=== PATIENT | female | born 1990 | race Caucasian/White ===

== ENCOUNTER → 2016-12-05 | Outpatient (CLI) | payer OTHER ==
[~2016-12-05] MED LIST: ALBUTEROL0.09 MG/A2 INH; ASMANEX220 MCG INH; AUGMENTIN 875 M1 TAB PO; BACTRIM DS 8001 TA1 PO; CIPRODEX 0.3%-7.5 ML OT; CIPROFLOXACIN500 MG PO; CLARITIN10 MG PO; CYMBALTA60 MG PO; DAYPRO600 M1 PO; FLEXERIL10 MG PO; FLUTICASON0.05 MG/A1 NAS; HYDROCODONE BIT1 T11 PO; IMMUNE GLOBULIN IV; LEVOFLOXACIN500 MG PO; LORADAMED10 MG PO; Lopressor25 MG PO; MACROBID100 M1 PO; MEDROL DOSEPAK4 MG PO; METFORMIN500 MG PO; MOTRIN800 MG PO; NEURONTIN300 MG PO; NKHM; NO DAILY MEDS; OMEPRAZOLE20 M2 PO; OXYCODONE-ACETAMINOP; PARAFON FORTE500 MG PO; PHENERGAN25 M1 PO; ROBAXIN750 MG PO; ULTRAM50 MG PO; ZITHROMAX250 MG PO; ZOFRAN ODT4 MG SL; [UNRECOGNIZED DRUG - OTHER]; [UNRECOGNIZED DRUG - OTHER]
== END | disposition home or self-care (01) ==
LOC: RAD 08:00
DX: K21.9 Gastro-esophageal reflux disease without esophagitis (principal)

== ENCOUNTER → 2017-01-17 | Outpatient (CLI) | payer OTHER ==
[2017-01-17 14:23] LABS: BASO % 0.5 % (0.0-1.0); EOS # 0.3 10*3/uL (0.0-0.4); EOS % 4.6 % (1.0-4.0); HEMATOCRIT 40.1 % (37.0-47.0); HEMOGLOBIN 13.7 g/dl (12.0-16.0); LYMPH # 2.5 10*3/uL (1.3-4.4); LYMPH % 38.3 % (27.0-41.0); MEAN CELL VOLUME 91.1 fl (81.0-99.0); MEAN CORPUSCULAR HGB 31.1 pg (27.0-31.0); MEAN CORPUSCULAR HGB CONC 34.2 g/dl (33.0-37.0); MEAN PLATELET VOLUME 9.2 fl (9.6-12.3); MONO # 0.4 10*3/uL (0.1-1.0); MONO % 6.1 % (3.0-9.0); NEUT # 3.3 10*3/uL (2.3-7.9); NEUT % 50.2 % (47.0-73.0); PLATELET COUNT AUTOMATED 303 10*3/uL (130-400); WHITE BLOOD COUNT 6.5 10*3/uL (4.8-10.8)
[2017-01-17 14:38] LABS: ALBUMIN 3.9 gm/dl (3.1-4.5); ALKALINE PHOSPHATASE 64 U/L (45-117); BILIRUBIN, TOTAL 0.2 mg/dl (0.2-1.0); BUN 9 mg/dl (7-24); CARBON DIOXIDE 26 mmol/L (21-32); CHLORIDE 107 mmol/L (98-107); EST GLOM FILT AFRICAN AMERICAN > 60 ml/min; GLUCOSE 78 mg/dL (65-99); POTASSIUM 3.8 mmol/L (3.5-5.1); SGOT/AST 27 IU/L (3-35); SGPT/ALT 18 U/L (12-78); SODIUM 138 mmol/L (136-145); TOTAL PROTEIN 7.7 gm/dL (6.4-8.2)
== END | disposition home or self-care (01) ==
LOC: LAB 13:11
PROVIDERS: Family Medicine
DX: K58.0 Irritable bowel syndrome with diarrhea (principal); R10.84 Generalized abdominal pain

== ENCOUNTER → 2017-01-18 | Outpatient (CLI) | payer OTHER | END | disposition home or self-care (01) | LOC: LAB 09:57 | DX: D83.9 Common variable immunodeficiency, unspecified (principal) ==

== ENCOUNTER 2017-01-31 11:59 | Emergency (ER) | payer OTHER ==
[~2017-01-31] VITALS: Wt 60.3 kg
[2017-01-31] MEDS ORDERED: TYLENOL325 M1 PO (12:18)
[2017-01-31] MEDS ORDERED: IVIG (12:18)
[2017-01-31] MEDS ORDERED: ZOFRAN4 MG PO (12:19)
[2017-01-31] MEDS ORDERED: METOPROLOL25 MG PO (12:19)
[2017-01-31] MEDS ORDERED: FLUONAZOLE100 M1 PO (12:20)
[2017-01-31] MEDS ORDERED: NEURONTIN300 MG PO (12:21)
[2017-01-31] MEDS ORDERED: PRENATAL1 TA3 PO (12:21)
[2017-01-31] MEDS ORDERED: FLONASE ALLERG9.9 ML NAS (12:22)
[2017-01-31] MEDS ORDERED: SINGULAIR10 M1 PO (12:22)
[2017-01-31] MEDS ORDERED: CLARITIN10 MG PO (12:23)
[2017-01-31] MEDS ORDERED: EPIPEN 2-PAK1 MG/ML IJ (12:23)
[2017-01-31] MEDS ORDERED: KEPPRA500 MG PO (12:24)
[2017-01-31] MEDS ORDERED: LINZESS72 MCG PO (12:24)
[2017-01-31] MEDS ORDERED: ASMANEX220 MCG INH (12:25)
[2017-01-31] MEDS ORDERED: METFORMIN500 MG PO (12:25)
[2017-01-31] MEDS ORDERED: CYCLOBENZAPRINE10 MG PO (12:26)
[2017-01-31 12:39] LABS: BASO % 0.6 % (0.0-1.0); EOS # 0.4 10*3/uL (0.0-0.4); HEMATOCRIT 37.3 % (37.0-47.0); HEMOGLOBIN 12.6 g/dl (12.0-16.0); LYMPH % 36.9 % (27.0-41.0); MEAN CORPUSCULAR HGB 30.7 pg (27.0-31.0); MEAN CORPUSCULAR HGB CONC 33.8 g/dl (33.0-37.0); MEAN PLATELET VOLUME 9.2 fl (9.6-12.3); MONO # 0.3 10*3/uL (0.1-1.0); MONO % 5.6 % (3.0-9.0); NEUT # 2.6 10*3/uL (2.3-7.9); NEUT % 49.7 % (47.0-73.0); PLATELET COUNT AUTOMATED 238 10*3/uL (130-400); RED CELL DISTRI WIDTH 12.4 % (0-14.5); WHITE BLOOD COUNT 5.3 10*3/uL (4.8-10.8)
[2017-01-31 12:47] LABS: PROTHROMBIN TIME 10.9 SECONDS (9.0-12.4)
[2017-01-31 12:57] LABS: ALBUMIN 3.6 gm/dl (3.1-4.5); ALKALINE PHOSPHATASE 49 U/L (45-117); BILIRUBIN, TOTAL 0.3 mg/dl (0.2-1.0); BUN 7 mg/dl (7-24); C-REACTIVE PROTEIN < 0.29 MG/DL (0-0.3); CARBON DIOXIDE 25 mmol/L (21-32); CHLORIDE 110 mmol/L (98-107); CKMB < 0.5 ng/ml (0.5-3.6); CPK 53 U/L (26-192); EST GLOM FILT AFRICAN AMERICAN > 60 ml/min; GLUCOSE 78 mg/dL (65-99); MAGNESIUM 2.2 mg/dL (1.5-2.1); PHOSPHOROUS 3.3 mg/dL (2.5-4.9); SGOT/AST 21 IU/L (3-35); SGPT/ALT 19 U/L (12-78); SODIUM 141 mmol/L (136-145); TOTAL PROTEIN 7.4 gm/dL (6.4-8.2); TROPONIN I < 0.015 ng/ml (<0.045)
== END 2017-01-31 15:58 | disposition home or self-care (01) ==
LOC: ED 11:59
PROVIDERS: Emergency Medicine
DX: G40.909 Epilepsy, unspecified, not intractable, without status epilepticus (principal); T42.6X5A Adverse effect of other antiepileptic and sedative-hypnotic drugs, initial encounter; K58.9 Irritable bowel syndrome, unspecified; Z79.899 Other long term (current) drug therapy; Z88.6 Allergy status to analgesic agent; Z88.8 Allergy status to other drugs, medicaments and biological substances; Y92.9 Unspecified place or not applicable

== ENCOUNTER → 2017-02-08 | Outpatient (CLI) | payer OTHER ==
[~2017-02-08] MED LIST changes: +CYCLOBENZAPRINE10 MG PO; +EPIPEN 2-PAK1 MG/ML IJ; +FLONASE ALLERG9.9 ML NAS; +FLUONAZOLE100 M1 PO; +IVIG; +KEPPRA500 MG PO; +LINZESS72 MCG PO; +METOPROLOL25 MG PO; +PRENATAL1 TA3 PO; +SINGULAIR10 M1 PO; +TYLENOL325 M1 PO; +ZOFRAN4 MG PO
== END | disposition home or self-care (01) ==
LOC: MRI 03:26 → CP 10:00
DX: G40.009 Localization-related (focal) (partial) idiopathic epilepsy and epileptic syndromes with seizures of localized onset, not intractable, without status epilepticus (principal)

== ENCOUNTER → 2017-03-02 | Outpatient (CLI) | payer OTHER ==
[2017-03-02 13:37] LABS: PROTHROMBIN TIME 10.3 SECONDS (9.0-12.4)
[2017-03-04 14:08] LABS: ANTI-THROMBIN III ACTIVITY 122 % (75-135); LUPUS DRVVT 41.1 sec (0.0-47.0); PROTEIN S, FREE 85 % (57-157); PROTEIN S, TOTAL 120 % (60-150); PTT-LA 33.6 sec (0.0-43.6)
[2017-03-04 15:05] LABS: LUPUS REFLEX INTERPRETATION Comment: (.)
== END | disposition home or self-care (01) ==
LOC: LAB 12:43
PROVIDERS: Family Medicine
DX: O03.9 Complete or unspecified spontaneous abortion without complication (principal); D83.9 Common variable immunodeficiency, unspecified; Z3A.00 Weeks of gestation of pregnancy not specified

== ENCOUNTER 2017-04-16 13:50 | Emergency (ER) | payer OTHER ==
[~2017-04-16] VITALS: Wt 61.2 kg
[2017-04-16 14:25] LABS: BASO % 0.5 % (0.0-1.0); EOS # 0.4 10*3/uL (0.0-0.4); EOS % 5.9 % (1.0-4.0); HEMATOCRIT 38.5 % (37.0-47.0); HEMOGLOBIN 12.9 g/dl (12.0-16.0); LYMPH # 2.5 10*3/uL (1.3-4.4); LYMPH % 43.1 % (27.0-41.0); MEAN CELL VOLUME 94.8 fl (81.0-99.0); MEAN CORPUSCULAR HGB 31.8 pg (27.0-31.0); MEAN CORPUSCULAR HGB CONC 33.5 g/dl (33.0-37.0); MEAN PLATELET VOLUME 8.8 fl (9.6-12.3); MONO # 0.4 10*3/uL (0.1-1.0); MONO % 6.1 % (3.0-9.0); NEUT # 2.6 10*3/uL (2.3-7.9); NEUT % 44.1 % (47.0-73.0); PLATELET COUNT AUTOMATED 281 10*3/uL (130-400); RED BLOOD COUNT 4.06 10*6/uL (4.10-5.10); RED CELL DISTRI WIDTH 12.2 % (0-14.5); WHITE BLOOD COUNT 5.9 10*3/uL (4.8-10.8)
[2017-04-16 14:41] LABS: ALBUMIN 3.8 gm/dl (3.1-4.5); ALKALINE PHOSPHATASE 68 U/L (45-117); BILIRUBIN, TOTAL 0.2 mg/dl (0.2-1.0); BUN 7 mg/dl (7-24); C-REACTIVE PROTEIN < 0.29 MG/DL (0-0.3); CARBON DIOXIDE 25 mmol/L (21-32); CHLORIDE 105 mmol/L (98-107); EST GLOM FILT AFRICAN AMERICAN > 60 ml/min; GLUCOSE 76 mg/dL (65-99); POTASSIUM 3.4 mmol/L (3.5-5.1); SGOT/AST 21 IU/L (3-35); SGPT/ALT 18 U/L (12-78); SODIUM 138 mmol/L (136-145); TOTAL PROTEIN 8.5 gm/dL (6.4-8.2)
[2017-04-16 14:43] LABS: BILIRUBIN NEGATIVE (NEGATIVE); BLOOD NEGATIVE (NEGATIVE); CLARITY CLEAR (CLEAR); COLOR YELLOW (YELLOW); GLUCOSE NEGATIVE (NEGATIVE); KETONE NEGATIVE (NEGATIVE); LEUKO ESTERASE NEGATIVE (NEGATIVE); NITRITE NEGATIVE (NEGATIVE); PH 5.5 (5.0-9.0); PROTEIN NEGATIVE (NEGATIVE); SPECIFIC GRAVITY 1.015 (1.005-1.030); UROBILINOGEN 0.2 E.U./dl (0.2-1.0)
[2017-04-16 14:50] LABS: BACTERIA TRACE; RBC 0-2 rbc/hpf (0-2); URINE REFLEX COMMENT NO (NO); WBC 0-2 wbc/hpf (0-5)
[2017-04-16] MEDS ORDERED: ZANTAC 150150 MG PO (15:14)
[2017-04-16] MEDS ORDERED: HYDROCODONE BIT1 T11 PO (15:14)
== END 2017-04-16 15:24 | disposition home or self-care (01) ==
LOC: ED 13:50
PROVIDERS: Physician Assistant
DX: R10.13 Epigastric pain (principal); R11.0 Nausea; K21.9 Gastro-esophageal reflux disease without esophagitis; F17.200 Nicotine dependence, unspecified, uncomplicated; Z88.6 Allergy status to analgesic agent; Z88.8 Allergy status to other drugs, medicaments and biological substances; Z79.899 Other long term (current) drug therapy

== ENCOUNTER 2017-04-30 17:49 | Emergency (ER) | payer OTHER ==
[~2017-04-30 17:49] MED LIST changes: +ZANTAC 150150 MG PO
[2017-04-30 18:22] LABS: BASO % 0.2 % (0.0-1.0); EOS # 0.3 10*3/uL (0.0-0.4); HEMATOCRIT 34.5 % (37.0-47.0); LYMPH # 1.7 10*3/uL (1.3-4.4); LYMPH % 20.6 % (27.0-41.0); MEAN CELL VOLUME 92.5 fl (81.0-99.0); MEAN CORPUSCULAR HGB 32.2 pg (27.0-31.0); MEAN CORPUSCULAR HGB CONC 34.8 g/dl (33.0-37.0); MEAN PLATELET VOLUME 8.6 fl (9.6-12.3); MONO # 0.5 10*3/uL (0.1-1.0); NEUT # 5.8 10*3/uL (2.3-7.9); NEUT % 69.8 % (47.0-73.0); PLATELET COUNT AUTOMATED 232 10*3/uL (130-400); RED BLOOD COUNT 3.73 10*6/uL (4.10-5.10); RED CELL DISTRI WIDTH 12.2 % (0-14.5); WHITE BLOOD COUNT 8.3 10*3/uL (4.8-10.8)
[2017-04-30 18:38] LABS: ALBUMIN 3.4 gm/dl (3.1-4.5); ALKALINE PHOSPHATASE 64 U/L (45-117); BUN 5 mg/dl (7-24); CHLORIDE 104 mmol/L (98-107); CREATININE 0.65 mg/dL (0.55-1.02); POTASSIUM 3.7 mmol/L (3.5-5.1); SGOT/AST 21 IU/L (3-35); SGPT/ALT 20 U/L (12-78); SODIUM 139 mmol/L (136-145); TOTAL PROTEIN 7.3 gm/dL (6.4-8.2)
[2017-04-30] MEDS ORDERED: PREDNISONE10 MG PO (19:03)
== END 2017-04-30 20:19 | disposition home or self-care (01) ==
LOC: ED 17:49
PROVIDERS: Nurse Practitioner Family
DX: J02.9 Acute pharyngitis, unspecified (principal); F17.200 Nicotine dependence, unspecified, uncomplicated; Z88.6 Allergy status to analgesic agent; Z88.8 Allergy status to other drugs, medicaments and biological substances; Z79.899 Other long term (current) drug therapy

== ENCOUNTER 2017-05-17 00:39 | Emergency (ER) | payer OTHER ==
[~2017-05-17] VITALS: Ht 154.9 cm; Wt 59.0 kg
[~2017-05-17 00:39] MED LIST changes: +PREDNISONE10 MG PO
[2017-05-17] MEDS ORDERED: FLUCONAZOLE100 MG PO (01:36)
== END 2017-05-17 02:08 | disposition home or self-care (01) ==
LOC: ED 00:39
DX: M25.512 Pain in left shoulder (principal); K12.1 Other forms of stomatitis; G40.909 Epilepsy, unspecified, not intractable, without status epilepticus; F17.200 Nicotine dependence, unspecified, uncomplicated; Z88.6 Allergy status to analgesic agent; Z88.8 Allergy status to other drugs, medicaments and biological substances; Z79.899 Other long term (current) drug therapy

== ENCOUNTER 2017-07-05 18:11 | Emergency (ER) | payer OTHER ==
[~2017-07-05] VITALS: Ht 162.5 cm; Wt 54.4 kg
[~2017-07-05 18:11] MED LIST changes: +FLUCONAZOLE100 MG PO
== END 2017-07-05 21:21 | disposition home or self-care (01) ==
LOC: ED 18:11
DX: R00.0 Tachycardia, unspecified (principal); T78.40XA Allergy, unspecified, initial encounter; Z79.899 Other long term (current) drug therapy; Z88.8 Allergy status to other drugs, medicaments and biological substances

== ENCOUNTER → 2017-07-20 | Outpatient (CLI) | payer OTHER | END | disposition home or self-care (01) | LOC: US 09:30 | DX: M25.561 Pain in right knee (principal); M54.41 Lumbago with sciatica, right side; R16.0 Hepatomegaly, not elsewhere classified; Z90.49 Acquired absence of other specified parts of digestive tract ==

== ENCOUNTER → 2017-07-28 | Outpatient (CLI) | payer OTHER | END | disposition home or self-care (01) | LOC: CARD 09:30 | DX: I50.1 Left ventricular failure, unspecified (principal); R00.0 Tachycardia, unspecified; D83.9 Common variable immunodeficiency, unspecified; Z87.19 Personal history of other diseases of the digestive system ==

== ENCOUNTER → 2017-08-09 | Outpatient (CLI) | payer OTHER | END | disposition home or self-care (01) | LOC: LAB 17:45 | DX: Z32.01 Encounter for pregnancy test, result positive (principal) ==

== ENCOUNTER → 2017-08-31 | Outpatient (CLI) | payer OTHER | END | disposition home or self-care (01) | LOC: MRI 09:00 | DX: M54.41 Lumbago with sciatica, right side (principal); M25.561 Pain in right knee; M25.551 Pain in right hip ==

== ENCOUNTER → 2017-09-08 | Outpatient (CLI) | payer OTHER | END | disposition home or self-care (01) | LOC: RAD 16:14 | DX: J45.909 Unspecified asthma, uncomplicated (principal); H92.03 Otalgia, bilateral; F17.200 Nicotine dependence, unspecified, uncomplicated; Z79.2 Long term (current) use of antibiotics ==

== ENCOUNTER → 2017-09-12 | Outpatient (CLI) | payer OTHER ==
[2017-09-12 15:10] LABS: BASO % 0.3 % (0.0-1.0); EOS # 0.6 10*3/uL (0.0-0.4); EOS % 10.2 % (1.0-4.0); HEMATOCRIT 39.8 % (37.0-47.0); HEMOGLOBIN 13.6 g/dl (12.0-16.0); LYMPH # 2.7 10*3/uL (1.3-4.4); LYMPH % 43.5 % (27.0-41.0); MEAN CELL VOLUME 91.5 fl (81.0-99.0); MEAN CORPUSCULAR HGB 31.3 pg (27.0-31.0); MEAN CORPUSCULAR HGB CONC 34.2 g/dl (33.0-37.0); MEAN PLATELET VOLUME 8.8 fl (9.6-12.3); MONO # 0.4 10*3/uL (0.1-1.0); MONO % 6.1 % (3.0-9.0); NEUT # 2.5 10*3/uL (2.3-7.9); NEUT % 39.6 % (47.0-73.0); PLATELET COUNT AUTOMATED 272 10*3/uL (130-400); RED BLOOD COUNT 4.35 10*6/uL (4.10-5.10); RED CELL DISTRI WIDTH 11.9 % (0-14.5); WHITE BLOOD COUNT 6.2 10*3/uL (4.8-10.8)
== END | disposition home or self-care (01) ==
LOC: LAB 14:44
PROVIDERS: Family Medicine
DX: R05 Cough (principal)

== ENCOUNTER 2017-09-18 17:49 | Emergency (ER) | payer OTHER ==
[~2017-09-18] VITALS: Ht 154.9 cm; Wt 59.0 kg
[2017-09-18 18:44] LABS: BASO % 0.5 % (0.0-1.0); EOS # 0.5 10*3/uL (0.0-0.4); EOS % 5.6 % (1.0-4.0); HEMATOCRIT 38.7 % (37.0-47.0); HEMOGLOBIN 13.2 g/dl (12.0-16.0); LYMPH # 2.6 10*3/uL (1.3-4.4); LYMPH % 30.5 % (27.0-41.0); MEAN CELL VOLUME 89.8 fl (81.0-99.0); MEAN CORPUSCULAR HGB 30.6 pg (27.0-31.0); MEAN CORPUSCULAR HGB CONC 34.1 g/dl (33.0-37.0); MEAN PLATELET VOLUME 8.6 fl (9.6-12.3); MONO # 0.3 10*3/uL (0.1-1.0); NEUT # 5.1 10*3/uL (2.3-7.9); PLATELET COUNT AUTOMATED 322 10*3/uL (130-400); RED BLOOD COUNT 4.31 10*6/uL (4.10-5.10); RED CELL DISTRI WIDTH 11.9 % (0-14.5); WHITE BLOOD COUNT 8.4 10*3/uL (4.8-10.8)
[2017-09-18 18:58] LABS: ALKALINE PHOSPHATASE 61 U/L (45-117); BUN 9 mg/dl (7-24); CHLORIDE 107 mmol/L (98-107); CREATININE 0.58 mg/dL (0.55-1.02); POTASSIUM 3.7 mmol/L (3.5-5.1); SGOT/AST 18 IU/L (3-35); SGPT/ALT 19 U/L (12-78); SODIUM 140 mmol/L (136-145); TOTAL PROTEIN 7.3 gm/dL (6.4-8.2)
[2017-09-18 19:44] LABS: BILIRUBIN NEGATIVE (NEGATIVE); BLOOD NEGATIVE (NEGATIVE); CLARITY SL CLOUDY (CLEAR); COLOR YELLOW (YELLOW); GLUCOSE NEGATIVE (NEGATIVE); KETONE NEGATIVE (NEGATIVE); LEUKO ESTERASE NEGATIVE (NEGATIVE); NITRITE NEGATIVE (NEGATIVE); PH 5.5 (5.0-9.0); SPECIFIC GRAVITY <= 1.005 (1.005-1.030); UROBILINOGEN 0.2 E.U./dl (0.2-1.0)
[2017-09-18 19:50] LABS: BACTERIA TRACE; RBC 0-2 rbc/hpf (0-2); WBC 0-2 wbc/hpf (0-5)
[2017-09-18] MEDS ORDERED: TESSALON PERLE100 MG PO (21:43)
[2017-09-18] MEDS ORDERED: ROBITUSSIN DM 105 ML PO (21:46)
== END 2017-09-18 22:56 | disposition left against medical advice (07) ==
LOC: ED 17:49
PROVIDERS: Physician Assistant
DX: R55 Syncope and collapse (principal); R42 Dizziness and giddiness; R05 Cough; F17.200 Nicotine dependence, unspecified, uncomplicated; Z79.899 Other long term (current) drug therapy; Z88.6 Allergy status to analgesic agent; Z88.8 Allergy status to other drugs, medicaments and biological substances

== ENCOUNTER → 2017-11-17 | Outpatient (CLI) | payer OTHER ==
[~2017-11-17] MED LIST changes: +ROBITUSSIN DM 105 ML PO; +TESSALON PERLE100 MG PO
[2017-11-17 13:02] LABS: BASO # 0.1 10*3/uL (0.0-0.1); BASO % 0.6 % (0.0-1.0); EOS # 0.6 10*3/uL (0.0-0.4); EOS % 6.5 % (1.0-4.0); HEMATOCRIT 40.9 % (37.0-47.0); HEMOGLOBIN 13.5 g/dl (12.0-16.0); LYMPH # 2.8 10*3/uL (1.3-4.4); LYMPH % 32.2 % (27.0-41.0); MEAN CELL VOLUME 93.8 fl (81.0-99.0); MEAN PLATELET VOLUME 8.8 fl (9.6-12.3); MONO # 0.5 10*3/uL (0.1-1.0); MONO % 6.1 % (3.0-9.0); NEUT # 4.7 10*3/uL (2.3-7.9); NEUT % 54.1 % (47.0-73.0); PLATELET COUNT AUTOMATED 309 10*3/uL (130-400); RED BLOOD COUNT 4.36 10*6/uL (4.10-5.10); RED CELL DISTRI WIDTH 12.4 % (0-14.5); WHITE BLOOD COUNT 8.7 10*3/uL (4.8-10.8)
[2017-11-17 13:27] LABS: ALBUMIN 4.1 gm/dl (3.1-4.5); ALKALINE PHOSPHATASE 64 U/L (45-117); BUN 7 mg/dl (7-24); CHLORIDE 105 mmol/L (98-107); CREATININE 0.64 mg/dL (0.55-1.02); POTASSIUM 3.8 mmol/L (3.5-5.1); SGOT/AST 19 IU/L (3-35); SGPT/ALT 21 U/L (12-78); SODIUM 140 mmol/L (136-145)
== END | disposition home or self-care (01) ==
LOC: LAB 12:43
PROVIDERS: Family Medicine Adult Medicine
DX: J40 Bronchitis, not specified as acute or chronic (principal)

== ENCOUNTER → 2017-11-20 | Outpatient (CLI) | payer OTHER ==
[2017-11-20 14:33] LABS: ALKALINE PHOSPHATASE 69 U/L (45-117); BUN 8 mg/dl (7-24); CHLORIDE 106 mmol/L (98-107); CHOLESTEROL 175 mg/dL (<200); CREATININE 0.67 mg/dL (0.55-1.02); HDL CHOLESTEROL 51 mg/dl (40-60); LDL CHOLESTEROL 87 mg/dL (9-159); POTASSIUM 4.1 mmol/L (3.5-5.1); SGOT/AST 16 IU/L (3-35); SGPT/ALT 22 U/L (12-78); SODIUM 139 mmol/L (136-145); TRIGLYCERIDES 187 mg/dl (<150); VLDL CHOLESTEROL 37 mg/dL (6-40)
== END | disposition home or self-care (01) ==
LOC: LAB 13:47
DX: E55.9 Vitamin D deficiency, unspecified (principal); R79.89 Other specified abnormal findings of blood chemistry

== ENCOUNTER → 2017-11-24 | Outpatient (CLI) | payer OTHER | END | disposition home or self-care (01) | LOC: RAD 08:52 | DX: R91.1 Solitary pulmonary nodule (principal) ==

== ENCOUNTER 2017-12-04 11:27 | Emergency (ER) | payer OTHER ==
[~2017-12-04] VITALS: Ht 154.9 cm; Wt 59.0 kg
[2017-12-04 12:01] LABS: BASO % 0.7 % (0.0-1.0); EOS # 0.5 10*3/uL (0.0-0.4); EOS % 8.7 % (1.0-4.0); HEMATOCRIT 39.2 % (37.0-47.0); HEMOGLOBIN 13.2 g/dl (12.0-16.0); LYMPH # 2.2 10*3/uL (1.3-4.4); LYMPH % 35.4 % (27.0-41.0); MEAN CELL VOLUME 92.7 fl (81.0-99.0); MEAN CORPUSCULAR HGB 31.2 pg (27.0-31.0); MEAN CORPUSCULAR HGB CONC 33.7 g/dl (33.0-37.0); MEAN PLATELET VOLUME 8.8 fl (9.6-12.3); MONO # 0.4 10*3/uL (0.1-1.0); MONO % 6.1 % (3.0-9.0); NEUT % 48.8 % (47.0-73.0); PLATELET COUNT AUTOMATED 278 10*3/uL (130-400); RED BLOOD COUNT 4.23 10*6/uL (4.10-5.10); RED CELL DISTRI WIDTH 12.4 % (0-14.5); WHITE BLOOD COUNT 6.1 10*3/uL (4.8-10.8)
[2017-12-04 12:11] LABS: BILIRUBIN NEGATIVE (NEGATIVE); BLOOD 3+ (NEGATIVE); CLARITY SL CLOUDY (CLEAR); COLOR YELLOW (YELLOW); GLUCOSE NEGATIVE (NEGATIVE); KETONE NEGATIVE (NEGATIVE); LEUKO ESTERASE TRACE (NEGATIVE); NITRITE NEGATIVE (NEGATIVE); PH 5.5 (5.0-9.0); SPECIFIC GRAVITY <= 1.005 (1.005-1.030); UROBILINOGEN 0.2 E.U./dl (0.2-1.0)
[2017-12-04 12:16] LABS: BUN 7 mg/dl (7-24); CHLORIDE 105 mmol/L (98-107); CREATININE 0.66 mg/dL (0.55-1.02); POTASSIUM 3.8 mmol/L (3.5-5.1); SODIUM 138 mmol/L (136-145)
[2017-12-04 12:20] LABS: BACTERIA 2+; EPITHELIAL CELLS 20-30; RBC 21-30 rbc/hpf (0-2)
== END 2017-12-04 13:09 | disposition home or self-care (01) ==
LOC: ED 11:27
PROVIDERS: Emergency Medicine
DX: O20.0 Threatened abortion (principal); Z3A.01 Less than 8 weeks gestation of pregnancy; Z79.899 Other long term (current) drug therapy; Z88.2 Allergy status to sulfonamides; Z88.5 Allergy status to narcotic agent; Z88.6 Allergy status to analgesic agent

== ENCOUNTER → 2017-12-07 | Outpatient (CLI) | payer OTHER | END | disposition home or self-care (01) | LOC: LAB 10:07 | DX: O20.9 Hemorrhage in early pregnancy, unspecified (principal) ==

== ENCOUNTER → 2017-12-14 | Day surgery (SDC) | payer OTHER ==
[~2017-12-14] VITALS: Ht 154.9 cm; Wt 59.0 kg
[~2017-12-14] MED LIST changes: +ALLERGY RELIEF10 M2 PO; +CEPHALEXIN500 M1 PO; +NORCO 5-325 TA1 EACH PO; +POTASSIUM CHLO10 ME5 PO
--- NOTE | ~2017-12-14 | PROC NOTE ---
[place], [place] PROCEDURE NOTE NAME: SPARKLE DELAROSA [facility] #: [id number] UNIT #: [id number] ROOM: DOCTOR: PETEY DWYER MD BIRTHDATE: [birth year] DOS: 12/14/2017 PREOPERATIVE DIAGNOSIS: Poor intravenous access. POSTOPERATIVE DIAGNOSIS: Poor intravenous access. PROCEDURE: Left internal jugular MediPort placement. SURGEON: Petey Dwyer MD STUDENT: RIGOBERTO. ANESTHESIA: MAC with local (10 mL of 1% plain lidocaine). INDICATIONS: This is a 27-year-old female with a history of multiple medical issues who needs twice monthly IVIG infusions and has poor IV access. She is here for a MediPort placement. The procedure and its complications were explained to the patient in detail preoperatively. Complications that were discussed included but were not limited to bleeding, hemothorax, pneumothorax, and damage to lying vital structures. She agreed to proceed. DESCRIPTION OF PROCEDURE: After identifying the patient, the patient was brought to the operating suite and laid in the supine position. After IV sedation was administered, a timeout procedure was called and the parts were then painted and draped in the usual sterile fashion. It was decided to proceed with a left subclavian approach first. With the help of a needle, the left subclavian vein was accessed and a guidewire was placed. This was confirmed to be in good placement on fluoroscopy. Thereafter, a pocket was created by injecting local anesthesia on the anterior chest wall and through this area catheter was placed via the introducer to the site of the left subclavian vein. Despite multiple attempts, the sheath and the dilator could not be passed over the wire and therefore, it was decided to proceed with the left internal jugular route with the help of an ultrasound. The left internal jugular vein was accessed with the help of a Seldinger technique and the guidewire was placed, which was confirmed to be in good placement on fluoroscopy. Thereafter, the pocket that was created before for the subclavian site was used for the insertion of a catheter on an introducer to the left internal jugular access site and at this time around though I was able to pass the sheath and the dilator into the vein. The dilator was removed and the catheter was placed over the sheath into the vein, which was felt confirmed to be in good placement. The catheter was then cut to size and it was fixed to the port. Heparin was injected and it was found to have good flow and good blood return as well. The MediPort was then fixed to the underlying anterior chest wall with the help of 3-0 Prolene in an interrupted fashion. The subcutaneous tissue was then approximated with the help of 3-0 Vicryl in a running fashion and the skin edges were approximated help of 4-0 Vicryl in a subcuticular running fashion. Both the access sites in the left subclavian area and the left neck were then approximated with the help of 4-0 Vicryl in a single subcuticular fashion. The port was accessed again and it was found to have good blood return and good flow to the heparin. The patient tolerated the procedure well and was brought back [place], [place] PROCEDURE NOTE NAME: PRUDENCIOTONYSPARKLE M UNIT #: [id number] ROOM: DOCTOR: PETEY DWYER MD BIRTHDATE: [birth year] to the recovery room in stable fashion where a chest x-ray was ordered. Dr. Petey Dwyer, the attending surgeon, was present throughout the operating case. There were no complications. Petey Dwyer MD CM:PROCNOTE:PROCEDURE NOTE [id number] PETEY DWYER MD
[2017-12-14 08:12] VITALS: BP 95/77
[2017-12-14 11:20] VITALS: BP 114/77
[2017-12-14 11:35] VITALS: BP 109/77
[2017-12-14 11:50] VITALS: BP 112/78
[2017-12-14 12:05] VITALS: BP 119/81
[2017-12-14 12:20] VITALS: BP 110/82
== END | disposition home or self-care (01) ==
LOC: SDC 12-11 09:30
DX: Z45.2 Encounter for adjustment and management of vascular access device (principal); J45.909 Unspecified asthma, uncomplicated; Z87.442 Personal history of urinary calculi; Z79.899 Other long term (current) drug therapy; Z88.8 Allergy status to other drugs, medicaments and biological substances; D80.1 Nonfamilial hypogammaglobulinemia; K21.9 Gastro-esophageal reflux disease without esophagitis; F17.210 Nicotine dependence, cigarettes, uncomplicated; Z90.49 Acquired absence of other specified parts of digestive tract; Z80.8 Family history of malignant neoplasm of other organs or systems

== ENCOUNTER 2017-12-15 15:05 | Emergency (ER) | payer OTHER ==
[~2017-12-15] VITALS: Ht 154.9 cm; Wt 59.0 kg
[~2017-12-15 15:05] MED LIST changes: -CEPHALEXIN500 M1 PO
[2017-12-15 15:53] LABS: BASO % 0.3 % (0.0-1.0); EOS # 0.6 10*3/uL (0.0-0.4); EOS % 7.8 % (1.0-4.0); HEMATOCRIT 40.1 % (37.0-47.0); HEMOGLOBIN 13.6 g/dl (12.0-16.0); LYMPH # 2.7 10*3/uL (1.3-4.4); MEAN CELL VOLUME 92.4 fl (81.0-99.0); MEAN CORPUSCULAR HGB 31.3 pg (27.0-31.0); MEAN CORPUSCULAR HGB CONC 33.9 g/dl (33.0-37.0); MEAN PLATELET VOLUME 8.8 fl (9.6-12.3); MONO # 0.5 10*3/uL (0.1-1.0); NEUT # 4.1 10*3/uL (2.3-7.9); NEUT % 51.6 % (47.0-73.0); PLATELET COUNT AUTOMATED 298 10*3/uL (130-400); RED BLOOD COUNT 4.34 10*6/uL (4.10-5.10); RED CELL DISTRI WIDTH 12.4 % (0-14.5); WHITE BLOOD COUNT 7.9 10*3/uL (4.8-10.8)
[2017-12-15 16:07] LABS: ALBUMIN 4.2 gm/dl (3.1-4.5); ALKALINE PHOSPHATASE 73 U/L (45-117); BUN 6 mg/dl (7-24); CHLORIDE 103 mmol/L (98-107); CREATININE 0.68 mg/dL (0.55-1.02); POTASSIUM 3.8 mmol/L (3.5-5.1); SGOT/AST 21 IU/L (3-35); SGPT/ALT 20 U/L (12-78); SODIUM 137 mmol/L (136-145); TOTAL PROTEIN 7.8 gm/dL (6.4-8.2)
[2017-12-15] MEDS ORDERED: CEPHALEXIN500 M1 PO (17:16)
== END 2017-12-15 17:21 | disposition home or self-care (01) ==
LOC: ED 15:05
PROVIDERS: Physician Assistant
DX: L08.9 Local infection of the skin and subcutaneous tissue, unspecified (principal); F17.200 Nicotine dependence, unspecified, uncomplicated; Z98.890 Other specified postprocedural states; Z79.899 Other long term (current) drug therapy; Z88.6 Allergy status to analgesic agent; Z88.8 Allergy status to other drugs, medicaments and biological substances; Z88.1 Allergy status to other antibiotic agents

== ENCOUNTER → 2018-01-05 | Outpatient (CLI) | payer OTHER ==
[~2018-01-05] MED LIST changes: +CEPHALEXIN500 M1 PO
[2018-01-05 16:42] LABS: FREE T4 1.04 ng/dl (0.76-1.46)
[2018-01-05 16:47] LABS: THYROID STIM HORMONE (HS) 0.563 uIU/ml (0.358-4.75)
[2018-01-06 07:05] LABS: FREE T3 010389 3.1 pg/mL (2.0-4.4)
[2018-01-06 17:04] LABS: ANTICARDIOLIPIN AB, IGG, QN <9 GPL U/mL (0-14); ANTICARDIOLIPIN AB, IGM, QN <9 MPL U/mL (0-12)
[2018-01-07 13:03] LABS: LUPUS REFLEX INTERPRETATION Comment: (.); PTT-LA 34.3 sec (0.0-51.9)
[2018-01-07 16:09] LABS: ANTI-THROMBIN III ACTIVITY 134 % (75-135); PROTEIN S, FREE 86 % (57-157); PROTEIN S, TOTAL 88 % (60-150); PROTEIN S-FUNCTIONAL 164525 98 % (63-140)
[2018-01-07 18:03] LABS: BETA-2 GLYCOPROTEIN I AB,IGA <9 (0-25); BETA-2 GLYCOPROTEIN I AB,IGG <9 (0-20); BETA-2 GLYCOPROTEIN I AB,IGM <9 (0-32)
== END | disposition home or self-care (01) ==
LOC: LAB 14:08
PROVIDERS: Physician Assistant Medical; Student in an Organized Health Care Education/Training Program
DX: Z30.09 Encounter for other general counseling and advice on contraception (principal); B16.2 Acute hepatitis B without delta-agent with hepatic coma; N96 Recurrent pregnancy loss

== ENCOUNTER → 2018-02-06 | Outpatient (CLI) | payer OTHER | END | disposition home or self-care (01) | LOC: MEDIPORT 10:14 | DX: Z45.2 Encounter for adjustment and management of vascular access device (principal); R10.31 Right lower quadrant pain; M79.89 Other specified soft tissue disorders ==

== ENCOUNTER 2018-02-22 19:17 | Emergency (ER) | payer OTHER ==
[~2018-02-22] VITALS: Ht 154.9 cm; Wt 56.7 kg
== END 2018-02-22 21:09 | disposition home or self-care (01) ==
LOC: ED 19:17
DX: T85.628A Displacement of other specified internal prosthetic devices, implants and grafts, initial encounter (principal); Z98.890 Other specified postprocedural states; Z79.899 Other long term (current) drug therapy; Z88.6 Allergy status to analgesic agent; Z88.8 Allergy status to other drugs, medicaments and biological substances; Z88.1 Allergy status to other antibiotic agents; Y92.9 Unspecified place or not applicable

== ENCOUNTER → 2018-03-09 | Outpatient (CLI) | payer OTHER | END | disposition home or self-care (01) | LOC: MEDIPORT 03:05 | DX: Z45.2 Encounter for adjustment and management of vascular access device (principal) ==

== ENCOUNTER 2018-03-19 17:35 | Emergency (ER) | payer OTHER ==
[~2018-03-19] VITALS: Ht 154.9 cm; Wt 59.0 kg
[2018-03-19 18:23] LABS: BASO # 0.1 10*3/uL (0.0-0.1); BASO % 0.6 % (0.0-1.0); EOS # 0.8 10*3/uL (0.0-0.4); EOS % 9.6 % (1.0-4.0); HEMATOCRIT 41.7 % (37.0-47.0); HEMOGLOBIN 13.9 g/dl (12.0-16.0); LYMPH # 2.9 10*3/uL (1.3-4.4); LYMPH % 36.3 % (27.0-41.0); MEAN CELL VOLUME 94.6 fl (81.0-99.0); MEAN CORPUSCULAR HGB 31.5 pg (27.0-31.0); MEAN CORPUSCULAR HGB CONC 33.3 g/dl (33.0-37.0); MEAN PLATELET VOLUME 8.7 fl (9.6-12.3); MONO # 0.3 10*3/uL (0.1-1.0); MONO % 4.1 % (3.0-9.0); NEUT # 3.9 10*3/uL (2.3-7.9); NEUT % 49.1 % (47.0-73.0); PLATELET COUNT AUTOMATED 303 10*3/uL (130-400); RED BLOOD COUNT 4.41 10*6/uL (4.10-5.10)
[2018-03-19 18:40] LABS: ALBUMIN 4.6 gm/dl (3.1-4.5); ALKALINE PHOSPHATASE 68 U/L (45-117); BUN 8 mg/dl (7-24); CHLORIDE 107 mmol/L (98-107); CREATININE 0.72 mg/dL (0.55-1.02); POTASSIUM 3.9 mmol/L (3.5-5.1); SGOT/AST 19 IU/L (3-35); SGPT/ALT 22 U/L (12-78); SODIUM 142 mmol/L (136-145)
[2018-03-19 18:50] LABS: ACT PARTIAL THROMBO TIME 22.9 SECONDS (20.8-31.5); INTERNATIONAL NORM RATIO 0.9 (2.0-3.5)
== END 2018-03-19 19:57 | disposition home or self-care (01) ==
LOC: ED 17:35
PROVIDERS: Nurse Practitioner
DX: S09.90XA Unspecified injury of head, initial encounter (principal); G40.909 Epilepsy, unspecified, not intractable, without status epilepticus; F17.200 Nicotine dependence, unspecified, uncomplicated; Z98.890 Other specified postprocedural states; Z79.899 Other long term (current) drug therapy; Z88.6 Allergy status to analgesic agent; Z88.8 Allergy status to other drugs, medicaments and biological substances; W22.8XXA Striking against or struck by other objects, initial encounter; Y93.89 Activity, other specified; Y92.89 Other specified places as the place of occurrence of the external cause; Y99.9 Unspecified external cause status

== ENCOUNTER → 2018-03-22 | Outpatient (CLI) | payer OTHER ==
[2018-03-22 16:48] LABS: BASO # 0.1 10*3/uL (0.0-0.1); BASO % 0.6 % (0.0-1.0); EOS # 0.8 10*3/uL (0.0-0.4); EOS % 8.3 % (1.0-4.0); HEMATOCRIT 43.4 % (37.0-47.0); HEMOGLOBIN 14.3 g/dl (12.0-16.0); LYMPH # 3.2 10*3/uL (1.3-4.4); LYMPH % 32.8 % (27.0-41.0); MEAN CELL VOLUME 94.6 fl (81.0-99.0); MEAN CORPUSCULAR HGB 31.2 pg (27.0-31.0); MEAN CORPUSCULAR HGB CONC 32.9 g/dl (33.0-37.0); MEAN PLATELET VOLUME 8.8 fl (9.6-12.3); MONO # 0.4 10*3/uL (0.1-1.0); MONO % 4.3 % (3.0-9.0); NEUT # 5.2 10*3/uL (2.3-7.9); NEUT % 53.7 % (47.0-73.0); PLATELET COUNT AUTOMATED 307 10*3/uL (130-400); RED BLOOD COUNT 4.59 10*6/uL (4.10-5.10); WHITE BLOOD COUNT 9.8 10*3/uL (4.8-10.8)
[2018-03-22 17:21] LABS: ALBUMIN 4.7 gm/dl (3.1-4.5); ALKALINE PHOSPHATASE 81 U/L (45-117); BUN 8 mg/dl (7-24); CHLORIDE 105 mmol/L (98-107); CREATININE 0.77 mg/dL (0.55-1.02); POTASSIUM 3.9 mmol/L (3.5-5.1); SGOT/AST 20 IU/L (3-35); SGPT/ALT 23 U/L (12-78); SODIUM 141 mmol/L (136-145); TOTAL PROTEIN 8.1 gm/dL (6.4-8.2)
== END ==
LOC: LAB 16:28
PROVIDERS: Specialist
DX: D83.8 Other common variable immunodeficiencies (principal)

== ENCOUNTER → 2018-04-11 | Outpatient (CLI) | payer OTHER | END | disposition home or self-care (01) | LOC: MRI 10:00 | DX: S09.90XD Unspecified injury of head, subsequent encounter (principal); X58.XXXD Exposure to other specified factors, subsequent encounter; R51 Headache; R47.81 Slurred speech; R39.15 Urgency of urination; M54.9 Dorsalgia, unspecified ==

== ENCOUNTER → 2018-11-14 | Outpatient (CLI) | payer OTHER ==
[2018-11-15 08:10] LABS: RHEUMATOID ARTHRITIS FACTOR <10.0 IU/mL (0.0-13.9)
[2018-11-15 13:07] LABS: ANTI-DSDNA ANTIBODIES 096339 10 IU/mL (0-9); ANTI-RNP ANTIBODIES 0.5 AI (0.0-0.9); ANTICHROMATIN ANTIBODIES <0.2 AI (0.0-0.9); ANTISCLERODERMA-70 AB 0.2 AI (0.0-0.9); SJOGREN ANTI-SS-A <0.2 AI (0.0-0.9); SJOREN AB, ANTI-SS-B <0.2 AI (0.0-0.9)
[2018-11-15 15:09] LABS: ALDOLASE 002030 1.5 U/L (3.3-10.3)
[2018-11-15 16:11] LABS: ATYPICAL PANCA <1:20 titer (Neg:<1:20); CYTOPLASMIC (C-ANCA) <1:20 titer (Neg:<1:20)
[2018-11-15 22:05] LABS: CCP ANTIBODIES IGG/IGA 5 units (0-19)
== END | disposition home or self-care (01) ==
LOC: LAB 02:38
PROVIDERS: Internal Medicine Pulmonary Disease
DX: J45.50 Severe persistent asthma, uncomplicated (principal)

== ENCOUNTER → 2018-11-27 | Outpatient (CLI) | payer OTHER ==
--- NOTE | 2018-11-27 10:35 | NUR ---
PATIENT HERE FOR MEDIPORT FLUSH ORDERED. [facility] SITE ACCESSED WITH NONCORING NEEDLE PER POLICY. PROMPT BLOOD RETURN NOTED. FLUSH WITH HEPARIN PER P&P. NONCORING NEEDLE REMOVED. BANDAID APPLIED NO BLEEDING OR HEMATOMA NOTED. PATIENT TOLERATED WELL. SELENE SHINE RN
== END | disposition home or self-care (01) ==
LOC: MEDIPORT 11-22 10:00
DX: Z45.2 Encounter for adjustment and management of vascular access device (principal)

== ENCOUNTER → 2019-01-28 | Outpatient (CLI) | payer OTHER | END | disposition home or self-care (01) | LOC: CT 11:00 | DX: R59.0 Localized enlarged lymph nodes (principal) ==

== ENCOUNTER → 2019-01-31 | Outpatient (CLI) | payer OTHER ==
[2019-02-01 10:08] LABS: ANTI-DSDNA ANTIBODIES 096339 8 IU/mL (0-9)
== END | disposition home or self-care (01) ==
LOC: LAB 14:41
PROVIDERS: Family Medicine
DX: D83.9 Common variable immunodeficiency, unspecified (principal)

== ENCOUNTER → 2019-07-16 | Outpatient (CLI) | payer OTHER ==
[2019-07-16 13:39] LABS: URINE AMPHETAMINES < 1000 (1000ng/ml); URINE BARBITURATES < 200 (200ng/ml); URINE BENZODIAZEPINES < 200 (200ng/ml); URINE CANNABINOIDS (THC) < 50 (50ng/ml); URINE COCAINE < 300 (300ng/ml); URINE METHADONE < 300 (300ng/ml); URINE OPIATES < 300 (300ng/ml)
[2019-07-16 13:46] LABS: URINE PHENCYCLIDINE < 25 (25ng/ml)
[2019-07-18 02:04] LABS: TRYPTASE 004280 4.7 ug/L (2.2-13.2)
[2019-07-20 00:03] LABS: ADENOVIRUS Negative (Negative); INFLUENZA A Negative (Negative); INFLUENZA B Negative (Negative); METAPNEUMOVIRUS Negative (Negative); PARAINFLUENZA 1 Negative (Negative); PARAINFLUENZA 2 Negative (Negative); PARAINFLUENZA 3 Negative (Negative); RHINOVIRUS Negative (Negative); RSV A Negative (Negative); RSV B Negative (Negative)
== END | disposition home or self-care (01) ==
LOC: LAB 11:02
PROVIDERS: Internal Medicine Pulmonary Disease
DX: J45.50 Severe persistent asthma, uncomplicated (principal); E71.311 Medium chain acyl CoA dehydrogenase deficiency; J06.9 Acute upper respiratory infection, unspecified; G90.9 Disorder of the autonomic nervous system, unspecified; R00.0 Tachycardia, unspecified

== ENCOUNTER → 2019-08-30 | Outpatient (CLI) | payer OTHER | END | disposition home or self-care (01) | LOC: LAB 16:17 | DX: J45.50 Severe persistent asthma, uncomplicated (principal); R05 Cough; R09.89 Other specified symptoms and signs involving the circulatory and respiratory systems; R07.89 Other chest pain ==

== ENCOUNTER → 2019-09-10 | Outpatient (CLI) | payer OTHER ==
--- NOTE | 2019-09-10 10:07 | NUR ---
MEDIPORT ACCESSED AND FLUSHED PER POLICY AND ORDER. PATIENT TOLERATED WELL. WILL CALL IN TO SCHEDULE NEXT VISIT
== END | disposition home or self-care (01) ==
LOC: MEDIPORT 09-06 10:00
DX: D83.9 Common variable immunodeficiency, unspecified (principal)

== ENCOUNTER → 2019-09-25 | Outpatient (CLI) | payer OTHER ==
[2019-09-25 08:43] LABS: ALBUMIN 3.9 gm/dl (3.1-4.5); BUN 7 mg/dl (7-24); CHLORIDE 113 mmol/L (98-107); CREATININE 0.84 mg/dL (0.55-1.02); POTASSIUM 3.9 mmol/L (3.5-5.1); SODIUM 142 mmol/L (136-145)
[2019-09-25 08:49] LABS: FREE T4 0.86 ng/dl (0.76-1.46)
== END | disposition home or self-care (01) ==
LOC: LAB 07:50
PROVIDERS: Internal Medicine Endocrinology, Diabetes & Metabolism
DX: E16.1 Other hypoglycemia (principal); E55.9 Vitamin D deficiency, unspecified

== ENCOUNTER → 2019-10-08 | Outpatient (CLI) | payer OTHER | END | disposition home or self-care (01) | LOC: US 10:30 → LAB 10:37 → US 10:37 | DX: E16.1 Other hypoglycemia (principal); E88.81 Metabolic syndrome and other insulin resistance; E55.9 Vitamin D deficiency, unspecified ==

== ENCOUNTER → 2019-10-22 | Outpatient (CLI) | payer OTHER ==
--- NOTE | 2019-10-22 09:39 | NUR ---
PT HERE FOR MEDIPORT FLUSH ORDERED. [facility] MEDIPORT ACCESS WITH NONCORING NEEDLE WITH PROMPT BLOOD RETURN. HEPARIN FLUSH PER POLICY. NEEDLE REMOVED. BANDAID APPLIED. TOLERATED WELL. SELENE SHINE RN
== END | disposition home or self-care (01) ==
LOC: MEDIPORT 08:07
DX: D83.9 Common variable immunodeficiency, unspecified (principal)

== ENCOUNTER 2019-10-27 11:06 | Emergency (ER) | payer OTHER ==
[~2019-10-27] VITALS: Ht 154.9 cm; Wt 52.2 kg
[2019-10-27 13:13] LABS: BASO # 0.1 10*3/uL (0.0-0.1); BASO % 0.6 % (0.0-1.0); EOS # 0.5 10*3/uL (0.0-0.4); EOS % 5.4 % (1.0-4.0); HEMATOCRIT 37.4 % (37.0-47.0); HEMOGLOBIN 12.5 g/dl (12.0-16.0); LYMPH # 2.8 10*3/uL (1.3-4.4); LYMPH % 30.8 % (27.0-41.0); MEAN CELL VOLUME 96.4 fl (81.0-99.0); MEAN CORPUSCULAR HGB 32.2 pg (27.0-31.0); MEAN CORPUSCULAR HGB CONC 33.4 g/dl (33.0-37.0); MEAN PLATELET VOLUME 8.7 fl (9.6-12.3); MONO # 0.4 10*3/uL (0.1-1.0); MONO % 4.8 % (3.0-9.0); NEUT # 5.2 10*3/uL (2.3-7.9); PLATELET COUNT AUTOMATED 332 10*3/uL (130-400); RED BLOOD COUNT 3.88 10*6/uL (4.10-5.10); RED CELL DISTRI WIDTH 12.3 % (0-14.5); WHITE BLOOD COUNT 8.9 10*3/uL (4.8-10.8)
[2019-10-27 13:28] LABS: ALBUMIN 3.8 gm/dl (3.1-4.5); ALKALINE PHOSPHATASE 76 U/L (45-117); BUN 8 mg/dl (7-24); CHLORIDE 114 mmol/L (98-107); CREATININE 0.67 mg/dL (0.55-1.02); SGOT/AST 18 IU/L (3-35); SGPT/ALT 28 U/L (12-78); SODIUM 142 mmol/L (136-145); TOTAL PROTEIN 7.1 gm/dL (6.4-8.2)
[2019-10-27 13:30] LABS: BETA-HCG, QUANT < 1.0 mIU/mL (1-3)
== END 2019-10-27 15:30 | disposition home or self-care (01) ==
LOC: ED 11:06
PROVIDERS: Emergency Medicine
DX: R07.89 Other chest pain (principal); R19.7 Diarrhea, unspecified; G40.909 Epilepsy, unspecified, not intractable, without status epilepticus; Z95.828 Presence of other vascular implants and grafts; Z90.49 Acquired absence of other specified parts of digestive tract; Z88.6 Allergy status to analgesic agent; Z88.8 Allergy status to other drugs, medicaments and biological substances; Z91.018 Allergy to other foods; Z88.2 Allergy status to sulfonamides; Z79.899 Other long term (current) drug therapy

== ENCOUNTER → 2019-12-19 | Outpatient (CLI) | payer OTHER | END | disposition home or self-care (01) | LOC: MEDIPORT 01:58 | DX: Z45.2 Encounter for adjustment and management of vascular access device (principal); D83.9 Common variable immunodeficiency, unspecified; J45.909 Unspecified asthma, uncomplicated; K21.9 Gastro-esophageal reflux disease without esophagitis; F17.210 Nicotine dependence, cigarettes, uncomplicated; Z90.49 Acquired absence of other specified parts of digestive tract ==

== ENCOUNTER → 2020-03-31 | Outpatient (CLI) | payer OTHER | END | disposition home or self-care (01) | LOC: RAD 13:12 | DX: M79.672 Pain in left foot (principal); M79.604 Pain in right leg ==

== ENCOUNTER → 2020-05-12 | Outpatient (CLI) | payer OTHER ==
[2020-05-12 13:41] LABS: BASO # 0.1 10*3/uL (0.0-0.1); BASO % 0.6 % (0.0-1.0); EOS # 0.5 10*3/uL (0.0-0.4); EOS % 5.8 % (1.0-4.0); HEMATOCRIT 39.1 % (37.0-47.0); LYMPH # 2.8 10*3/uL (1.3-4.4); LYMPH % 31.6 % (27.0-41.0); MEAN CELL VOLUME 93.5 fl (81.0-99.0); MEAN CORPUSCULAR HGB 31.3 pg (27.0-31.0); MEAN CORPUSCULAR HGB CONC 33.5 g/dl (33.0-37.0); MEAN PLATELET VOLUME 9.1 fl (9.6-12.3); MONO # 0.4 10*3/uL (0.1-1.0); NEUT % 57.7 % (47.0-73.0); PLATELET COUNT AUTOMATED 319 10*3/uL (130-400); RED BLOOD COUNT 4.18 10*6/uL (4.10-5.10); RED CELL DISTRI WIDTH 12.1 % (0-14.5); WHITE BLOOD COUNT 8.7 10*3/uL (4.8-10.8)
[2020-05-12 13:51] LABS: IRON 113 ug/dL (50-170); TOTAL IRON BINDING CAPACITY 362 ug/dl (250-450)
== END | disposition home or self-care (01) ==
LOC: LAB 13:02
PROVIDERS: ATTEND Physician Assistant Medical
DX: M25.571 Pain in right ankle and joints of right foot (principal); M25.572 Pain in left ankle and joints of left foot; M25.40 Effusion, unspecified joint; G25.81 Restless legs syndrome

== ENCOUNTER 2020-06-18 12:57 | Inpatient (IN) | payer OTHER ==
[~2020-06-18] VITALS: Ht 154.9 cm; Wt 54.7 kg
[2020-06-18 13:02] VITALS: BP 115/87
[2020-06-18 13:31] LABS: BASO % 0.2 % (0.0-1.0); EOS % 0.1 % (1.0-4.0); HEMATOCRIT 38.5 % (37.0-47.0); LYMPH # 0.9 10*3/uL (1.3-4.4); LYMPH % 10.8 % (27.0-41.0); MEAN CELL VOLUME 93.9 fl (81.0-99.0); MEAN CORPUSCULAR HGB 31.7 pg (27.0-31.0); MEAN CORPUSCULAR HGB CONC 33.8 g/dl (33.0-37.0); MEAN PLATELET VOLUME 8.9 fl (9.6-12.3); MONO # 0.1 10*3/uL (0.1-1.0); MONO % 1.1 % (3.0-9.0); NEUT # 7.5 10*3/uL (2.3-7.9); NEUT % 87.6 % (47.0-73.0); PLATELET COUNT AUTOMATED 298 10*3/uL (130-400); RED CELL DISTRI WIDTH 12.2 % (0-14.5); WHITE BLOOD COUNT 8.5 10*3/uL (4.8-10.8)
[2020-06-18 13:44] LABS: ACT PARTIAL THROMBO TIME 26.8 SECONDS (20.0-32.1); INTERNATIONAL NORM RATIO 0.9 (2.0-3.5)
[2020-06-18 13:53] LABS: ALBUMIN 4.4 gm/dl (3.1-4.5); ALKALINE PHOSPHATASE 64 U/L (45-117); BUN 10 mg/dl (7-24); CHLORIDE 116 mmol/L (98-107); CREATININE 0.94 mg/dL (0.55-1.02); POTASSIUM 3.5 mmol/L (3.5-5.1); SGOT/AST 20 IU/L (3-35); SGPT/ALT 21 U/L (12-78); SODIUM 142 mmol/L (136-145); TOTAL PROTEIN 8.8 gm/dL (6.4-8.2)
[2020-06-18 13:54] LABS: TROPONIN I < 0.015 ng/ml (<0.045)
[2020-06-18 14:47] VITALS: BP 104/64
[2020-06-18 14:53] LABS: BILIRUBIN Negative (Negative); BLOOD Negative (Negative); CLARITY Clear (Clear); COLOR Yellow (Yellow); GLUCOSE Negative (Negative); KETONE Negative (Negative); LEUKO ESTERASE Negative (Negative); NITRITE Negative (Negative); PH 6.5 (4.5-8.0); SPECIFIC GRAVITY <= 1.005 (1.001-1.030); UROBILINOGEN 0.2 E.U./dl (0.0-1.0)
[2020-06-18 15:10] LABS: BACTERIA TRACE; EPITHELIAL CELLS 0-2; RBC 0-2 rbc/hpf (0-2); WBC 0-2 wbc/hpf (0-5)
--- NOTE | 2020-06-18 15:56 | NUR ---
PT IS RESTING IN BED. SHE IS TALKING ON CELL PHONE. WILL CONTINUE TO MONITOR.
--- NOTE | 2020-06-18 22:06 | NUR ---
PT RESTING ON COT. GIVEN LUNCH BOX. DENIES ANY OTHER NEEDS AT THIS TIME. WILL CONTINUE TO MONITOR.
--- NOTE | 2020-06-19 00:25 | NUR ---
PT GIVEN SPUTUM CUP AND INSTRUCTED ON HOW TO USE. THIS RN INSTRUCTED PT TO PRESS CALL LIGHT WHEN PROCESS COMPLETED.
[2020-06-19 01:30] VITALS: BP 152/68
--- NOTE | 2020-06-19 02:12 | NUR ---
PT RESTING ON COT. VSS. DENIES ALL NEEDS AT THIS TIME. WILL CONTINUE TO MONITOR.
[2020-06-19 06:14] LABS: ALBUMIN 3.2 gm/dl (3.1-4.5); ALKALINE PHOSPHATASE 40 U/L (45-117); BUN 10 mg/dl (7-24); CHLORIDE 116 mmol/L (98-107); CREATININE 0.71 mg/dL (0.55-1.02); FREE T4 1.07 ng/dl (0.76-1.46); LDH 102 U/L (84-246); POTASSIUM 3.3 mmol/L (3.5-5.1); SGOT/AST 13 IU/L (3-35); SGPT/ALT 17 U/L (12-78); SODIUM 145 mmol/L (136-145); TOTAL PROTEIN 6.4 gm/dL (6.4-8.2)
[2020-06-19 06:16] LABS: BASO % 0.3 % (0.0-1.0); EOS # 0.2 10*3/uL (0.0-0.4); EOS % 2.3 % (1.0-4.0); HEMATOCRIT 31.2 % (37.0-47.0); LYMPH # 3.3 10*3/uL (1.3-4.4); LYMPH % 49.1 % (27.0-41.0); MEAN CELL VOLUME 95.1 fl (81.0-99.0); MEAN CORPUSCULAR HGB 31.4 pg (27.0-31.0); MEAN PLATELET VOLUME 9.3 fl (9.6-12.3); MONO # 0.4 10*3/uL (0.1-1.0); MONO % 6.2 % (3.0-9.0); NEUT # 2.8 10*3/uL (2.3-7.9); NEUT % 41.8 % (47.0-73.0); PLATELET COUNT AUTOMATED 248 10*3/uL (130-400); RED BLOOD COUNT 3.28 10*6/uL (4.10-5.10); RED CELL DISTRI WIDTH 12.3 % (0-14.5); WHITE BLOOD COUNT 6.7 10*3/uL (4.8-10.8)
[2020-06-19 06:59] LABS: VITAMIN D, 25-HYDROXY 46.5 ng/mL (30-100)
[2020-06-19 07:00] LABS: FERRITIN 59.3 ng/mL (10.0-291.0)
--- NOTE | 2020-06-19 07:34 | NUR ---
REPORT RECEIVED FROM STEVE PICKENS.
--- NOTE | 2020-06-19 07:35 | NUR ---
BGL 82, BEDSIDE.
--- NOTE | 2020-06-19 09:31 | NUR ---
WILL TAKE PATIENT TO FLOOR IN ABOUT 15 MINUTES.
[2020-06-19 09:47] VITALS: BP 150/66
[2020-06-19 10:00] VITALS: BP 106/73
--- NOTE | 2020-06-19 10:20 | NUR ---
A 29, admitted to , under the services of FRANCIS Almanza DO with a diagnosis of SEPSIS, PNEUMONITIS. Chief complaint is COUGH. Patient arrived via ambulatory from ER. Monitor applied. Initial assessment completed. Vital signs taken and recorded. FRANCIS ALMANZA DO notified of admission to the unit. Orders received. See assessment for past medical history, medications and allergies. Patient and/or family oriented to unit. [facility] visitation policy reviewed. Clothing/patient valuable form completed. TAYLER JOAQUIN
[2020-06-19 12:00] VITALS: BP 110/83
--- NOTE | 2020-06-19 12:29 | NUR ---
Tire Room Supervisor in to talk to patient. Patient states lives at home alone with her family checking in on her. There are 13 steps in the home. Physician: Dr. Alethea Le Pharmacy: [facility] Home health services: none Patient's level of ADLs: INDEPENDENT Patient has working utilities: yes DME: nebulizer Follow-up physician's appointment after d/c: will be made by the hospitalist nurse director upon discharge Does patient want to access PORTAL?: no Discharge plan discussed with patient. She lives at alone home with her family checking in on her. She states she is independent in her ADLs and ambulation. Discussed home health care services and she is agreeable. When provided with a list of agencies she chose [facility] and would like a nurse. Hospitalist nurse director notified. When medically stable she will be discharged to home with [facility] services. She is unsure of transportation on discharge at this time. ERVIN MENDEZ
--- NOTE | 2020-06-19 14:37 | NUR ---
Discharge instructions reviewed with patient/family. Patient receptive and verbalizes understanding. Follow-up care arranged. Written instructions given to patient/family. TAYLER JOAQUIN
--- NOTE | 2020-06-19 14:42 | NUR ---
POWERHOUSE MECHANIC SUPERVISOR FAXED REFERRAL TO [facility] WITH FACE TO FACE.
--- NOTE | 2020-06-22 09:54 | NUR ---
TRANSIT PLANNING DIRECTOR FAXED REFERRAL TO [facility] IS UNABLE TO ACCEPT THE PATIENT.
== END 2020-06-19 14:37 | disposition home or self-care (01) | DRG 720 ==
LOC: ED 12:57 → EDHOLD 14:27 → 4E 14:27 → EDHOLD 16:32 → 4E 06-19 08:44
PROVIDERS: Emergency Medicine; Internal Medicine; ADMIT Internal Medicine; ATTEND Internal Medicine
DX: A41.9 Sepsis, unspecified organism (principal); J18.9 Pneumonia, unspecified organism; R65.20 Severe sepsis without septic shock; E87.8 Other disorders of electrolyte and fluid balance, not elsewhere classified; E83.41 Hypermagnesemia; G40.909 Epilepsy, unspecified, not intractable, without status epilepticus; M32.9 Systemic lupus erythematosus, unspecified; J45.20 Mild intermittent asthma, uncomplicated; D83.9 Common variable immunodeficiency, unspecified; E11.40 Type 2 diabetes mellitus with diabetic neuropathy, unspecified; Z20.828 Contact with and (suspected) exposure to other viral communicable diseases; K58.9 Irritable bowel syndrome, unspecified; I49.8 Other specified cardiac arrhythmias; F17.210 Nicotine dependence, cigarettes, uncomplicated; Z71.6 Tobacco abuse counseling; Z88.5 Allergy status to narcotic agent; Z88.2 Allergy status to sulfonamides; Z88.8 Allergy status to other drugs, medicaments and biological substances; Z91.018 Allergy to other foods; Z87.440 Personal history of urinary (tract) infections; Z90.49 Acquired absence of other specified parts of digestive tract; Z80.8 Family history of malignant neoplasm of other organs or systems; Z79.899 Other long term (current) drug therapy

== ENCOUNTER → 2020-08-17 | Outpatient (CLI) | payer OTHER | END | disposition home or self-care (01) | LOC: CT 14:51 | PROVIDERS: ATTEND Family Medicine | DX: J18.9 Pneumonia, unspecified organism (principal) ==

== ENCOUNTER → 2020-09-02 | Outpatient (CLI) | payer OTHER, MEDICAID | END | disposition home or self-care (01) | LOC: CT 10:00 | PROVIDERS: ATTEND Family Medicine | DX: R10.30 Lower abdominal pain, unspecified (principal); N85.4 Malposition of uterus ==

== ENCOUNTER → 2020-09-22 | Outpatient (CLI) | payer OTHER, MEDICAID | END | disposition home or self-care (01) | LOC: US 10:21 | PROVIDERS: ATTEND Family Medicine | DX: R10.84 Generalized abdominal pain (principal) ==

== ENCOUNTER → 2020-09-25 | Outpatient (CLI) | payer OTHER, MEDICAID | END | disposition home or self-care (01) | LOC: CT 13:00 | PROVIDERS: ATTEND Family Medicine | DX: J98.11 Atelectasis (principal) ==

== ENCOUNTER 2021-02-10 15:06 | Emergency (ER) | payer OTHER, MEDICAID ==
[~2021-02-10] VITALS: Ht 154.9 cm; Wt 53.1 kg
[2021-02-10 15:59] LABS: BASO % 0.7 % (0.0-1.0); EOS # 0.3 10*3/uL (0.0-0.4); EOS % 6.6 % (1.0-4.0); HEMATOCRIT 42.2 % (37.0-47.0); LYMPH # 1.8 10*3/uL (1.3-4.4); LYMPH % 38.3 % (27.0-41.0); MEAN CORPUSCULAR HGB 31.5 pg (27.0-31.0); MEAN CORPUSCULAR HGB CONC 31.5 g/dl (33.0-37.0); MEAN PLATELET VOLUME 8.8 fl (9.6-12.3); MONO # 0.2 10*3/uL (0.1-1.0); NEUT # 2.3 10*3/uL (2.3-7.9); NEUT % 49.4 % (47.0-73.0); PLATELET COUNT AUTOMATED 286 10*3/uL (130-400); RED BLOOD COUNT 4.22 10*6/uL (4.10-5.10); RED CELL DISTRI WIDTH 12.5 % (0-14.5); WHITE BLOOD COUNT 4.6 10*3/uL (4.8-10.8)
[2021-02-10 16:19] LABS: ALBUMIN 3.7 gm/dl (3.1-4.5); ALKALINE PHOSPHATASE 58 U/L (45-117); BUN 7 mg/dl (7-24); CHLORIDE 113 mmol/L (98-107); CREATININE 0.72 mg/dL (0.55-1.02); POTASSIUM 3.5 mmol/L (3.5-5.1); SGOT/AST 20 IU/L (3-35); SGPT/ALT 23 U/L (12-78); SODIUM 136 mmol/L (136-145); TOTAL PROTEIN 8.2 gm/dL (6.4-8.2)
== END 2021-02-10 17:50 | disposition home or self-care (01) ==
LOC: ED 15:06
PROVIDERS: Physician Assistant
DX: J06.9 Acute upper respiratory infection, unspecified (principal); Z88.8 Allergy status to other drugs, medicaments and biological substances; Z88.5 Allergy status to narcotic agent; Z79.899 Other long term (current) drug therapy; Z79.84 Long term (current) use of oral hypoglycemic drugs; Z90.49 Acquired absence of other specified parts of digestive tract; Z98.890 Other specified postprocedural states

== ENCOUNTER → 2021-03-02 | Outpatient (CLI) | payer OTHER, MEDICAID ==
[2021-03-02 12:47] LABS: BILIRUBIN Negative (Negative); BLOOD Negative (Negative); CLARITY Clear (Clear); COLOR Yellow (Yellow); GLUCOSE Negative (Negative); KETONE Negative (Negative); LEUKO ESTERASE Negative (Negative); NITRITE Negative (Negative); PH 5.5 (4.5-8.0); SPECIFIC GRAVITY <= 1.005 (1.001-1.030); UROBILINOGEN 0.2 E.U./dl (0.0-1.0)
[2021-03-02 14:57] LABS: BACTERIA TRACE; WBC 0-2 wbc/hpf (0-5)
== END | disposition home or self-care (01) ==
LOC: LAB 12:00
PROVIDERS: ATTEND Family Medicine
DX: J32.0 Chronic maxillary sinusitis (principal)

== ENCOUNTER → 2021-07-28 | Outpatient (CLI) | payer OTHER, MEDICAID | END | disposition home or self-care (01) | LOC: MEDIPORT 08:53 | PROVIDERS: ATTEND Family Medicine | DX: Z45.2 Encounter for adjustment and management of vascular access device (principal) ==

== ENCOUNTER → 2021-12-03 | Outpatient (CLI) | payer OTHER, MEDICAID | END | disposition home or self-care (01) | LOC: MEDIPORT 10:56 | PROVIDERS: ATTEND Family Medicine | DX: Z45.2 Encounter for adjustment and management of vascular access device (principal); D83.9 Common variable immunodeficiency, unspecified ==

== ENCOUNTER → 2022-01-14 | Outpatient (CLI) | payer OTHER, MEDICAID | END | disposition home or self-care (01) | LOC: MEDIPORT 09:51 | PROVIDERS: ATTEND Family Medicine | DX: Z45.2 Encounter for adjustment and management of vascular access device (principal) ==

== ENCOUNTER → 2022-03-08 | Outpatient (CLI) | payer OTHER, MEDICAID | END | disposition home or self-care (01) | LOC: MEDIPORT 10:56 | PROVIDERS: ATTEND Family Medicine | DX: Z45.2 Encounter for adjustment and management of vascular access device (principal); Z78.9 Other specified health status ==

== ENCOUNTER → 2022-05-03 | Outpatient (CLI) | payer OTHER, MEDICAID | END | disposition home or self-care (01) | LOC: MEDIPORT 09:50 | PROVIDERS: ATTEND Family Medicine | DX: Z45.2 Encounter for adjustment and management of vascular access device (principal); D83.9 Common variable immunodeficiency, unspecified; Z88.2 Allergy status to sulfonamides; Z88.5 Allergy status to narcotic agent; Z88.6 Allergy status to analgesic agent ==

== ENCOUNTER → 2022-06-28 | Outpatient (CLI) | payer OTHER, MEDICAID | END | disposition home or self-care (01) | LOC: MEDIPORT 10:00 | PROVIDERS: ATTEND Family Medicine | DX: Z45.2 Encounter for adjustment and management of vascular access device (principal); D83.9 Common variable immunodeficiency, unspecified ==

== ENCOUNTER → 2022-08-15 | Outpatient (CLI) | payer OTHER, MEDICAID | END | disposition home or self-care (01) | LOC: MEDIPORT 08-12 10:30 | PROVIDERS: ATTEND Family Medicine | DX: Z45.2 Encounter for adjustment and management of vascular access device (principal); D83.9 Common variable immunodeficiency, unspecified ==

== ENCOUNTER → 2022-10-13 | Outpatient (CLI) | payer OTHER, MEDICAID | END | disposition home or self-care (01) | LOC: MEDIPORT 01:26 | PROVIDERS: ATTEND Family Medicine | DX: Z45.2 Encounter for adjustment and management of vascular access device (principal); D83.9 Common variable immunodeficiency, unspecified ==

== ENCOUNTER → 2022-12-28 | Outpatient (CLI) | payer OTHER, MEDICAID ==
[2022-12-28 10:44] VITALS: BP 93/55
== END | disposition home or self-care (01) ==
LOC: MEDIPORT 00:56
PROVIDERS: ATTEND Family Medicine
DX: Z45.2 Encounter for adjustment and management of vascular access device (principal); D83.9 Common variable immunodeficiency, unspecified

== ENCOUNTER → 2023-03-06 | Outpatient (CLI) | payer OTHER, MEDICAID ==
[2023-03-06 10:26] VITALS: BP 99/61
== END | disposition home or self-care (01) ==
LOC: MEDIPORT 00:18
PROVIDERS: ATTEND Family Medicine
DX: Z45.2 Encounter for adjustment and management of vascular access device (principal); D83.9 Common variable immunodeficiency, unspecified; K21.9 Gastro-esophageal reflux disease without esophagitis; J45.909 Unspecified asthma, uncomplicated; F17.200 Nicotine dependence, unspecified, uncomplicated; Z90.49 Acquired absence of other specified parts of digestive tract; Z98.890 Other specified postprocedural states

== ENCOUNTER → 2023-07-27 | Outpatient (CLI) | payer OTHER, MEDICAID | END | disposition home or self-care (01) | LOC: MEDIPORT 01:11 | PROVIDERS: ATTEND Family Medicine | DX: Z45.2 Encounter for adjustment and management of vascular access device (principal); D83.9 Common variable immunodeficiency, unspecified ==

== ENCOUNTER → 2023-08-22 | Outpatient (CLI) | payer OTHER, MEDICAID | END | disposition home or self-care (01) | LOC: MRI 00:48 | PROVIDERS: ATTEND Family Medicine | DX: G43.E09 Chronic migraine with aura, not intractable, without status migrainosus (principal) ==

== ENCOUNTER → 2023-09-21 | Outpatient (CLI) | payer OTHER, MEDICAID ==
[2023-09-25 18:06] LABS: 25-HYDROXY, VITAMIN D-2 1.1 ng/mL (.)
== END | disposition home or self-care (01) ==
LOC: MEDIPORT 10:52
PROVIDERS: ATTEND Family Medicine
DX: Z45.2 Encounter for adjustment and management of vascular access device (principal); D83.9 Common variable immunodeficiency, unspecified

== ENCOUNTER → 2023-11-10 | Outpatient (CLI) | payer OTHER, MEDICAID ==
[~2023-11-10] MED LIST changes: +HEPARIN SODIUM 500 UNIT/5 ML SYR IV ONE; +HEPARIN SODIUM 500 UNIT/5 ML SYR IV SCH; +SODIUM CHLORIDE 0.9% 10 ML SYR IV PRN
== END | disposition home or self-care (01) ==
LOC: MEDIPORT 01:22
PROVIDERS: ATTEND Family Medicine
DX: Z45.2 Encounter for adjustment and management of vascular access device (principal); D83.9 Common variable immunodeficiency, unspecified

== ENCOUNTER → 2024-01-03 | Outpatient (CLI) | payer OTHER, MEDICAID | END | disposition home or self-care (01) | LOC: MEDIPORT 02:18 | PROVIDERS: ATTEND Family Medicine | DX: Z45.2 Encounter for adjustment and management of vascular access device (principal); D83.9 Common variable immunodeficiency, unspecified ==

== ENCOUNTER → 2024-02-23 | Outpatient (CLI) | payer OTHER, MEDICAID | END | disposition home or self-care (01) | LOC: MEDIPORT 07:38 | PROVIDERS: ATTEND Family Medicine | DX: Z45.2 Encounter for adjustment and management of vascular access device (principal); D83.9 Common variable immunodeficiency, unspecified ==

== ENCOUNTER → 2024-04-30 | Outpatient (CLI) | payer OTHER | END | disposition home or self-care (01) | LOC: MEDIPORT 01:45 | PROVIDERS: ATTEND Family Medicine | DX: Z45.2 Encounter for adjustment and management of vascular access device (principal); D83.9 Common variable immunodeficiency, unspecified ==

== ENCOUNTER → 2024-06-19 | Outpatient (CLI) | payer OTHER | END | disposition home or self-care (01) | LOC: MEDIPORT 00:24 | PROVIDERS: ATTEND Family Medicine | DX: Z45.2 Encounter for adjustment and management of vascular access device (principal); D83.9 Common variable immunodeficiency, unspecified ==

== ENCOUNTER → 2024-07-16 | Outpatient (CLI) | payer OTHER | END | disposition home or self-care (01) | LOC: MEDIPORT 04:20 | PROVIDERS: ATTEND Family Medicine | DX: D83.9 Common variable immunodeficiency, unspecified (principal) ==

== ENCOUNTER → 2024-09-09 | Outpatient (CLI) | payer OTHER | END | disposition home or self-care (01) | LOC: MEDIPORT 02:08 | PROVIDERS: ATTEND Family Medicine | DX: Z45.2 Encounter for adjustment and management of vascular access device (principal); J45.909 Unspecified asthma, uncomplicated; E11.40 Type 2 diabetes mellitus with diabetic neuropathy, unspecified; Z90.49 Acquired absence of other specified parts of digestive tract ==

== ENCOUNTER → 2024-10-23 | Outpatient (CLI) | payer OTHER | END | disposition home or self-care (01) | LOC: MEDIPORT 10-14 08:30 | PROVIDERS: ATTEND Family Medicine | DX: D83.9 Common variable immunodeficiency, unspecified (principal) ==